=== PATIENT | female | born 1970 | race American Indian/Alaskan Native ===

== ENCOUNTER 2020-11-14 18:10 | Emergency (ER) | payer SELFPAY ==
[2020-11-14 19:47] VITALS: BP 142/82
--- NOTE | 2020-11-14 19:53 | Emergency Department Report ---
ED General Adult HPI - General Stated complaint: INSECT BITE Time Seen by Provider: 11/14/20 19:49 - History of Present Illness Initial comments: 49-year-old female patient presents to the emergency department with complaints of progressively worsening right lower extremity pain/swelling/erythema progressively worsening for 2 weeks. Patient states that the lesion appeared on her anterior right lower leg after attending a barbecue. She was evaluated at another local emergency department, where she was treated with an antibiotic containing Penicillin (cannot recall the name) for 5 days and discharged home. Patient states her symptoms have worsened despite her compliance with prescribed antibiotic therapy. No known history of diabetes. Denies fever, chills, paresthesias, numbness, purulent drainage, abnormal bleeding/bruising. Denies all other complaints at this time. - Related Data Previous Rx's Medication Instructions Recorded Last Taken Type Diclofenac Sodium 50 mg PO TID #20 tablet. 11/14/20 Unknown Rx Sulfamethoxazole/Trimethoprim 1 each PO BID 7 Days tablet 11/14/20 Unknown Rx [Bactrim 400-80 mg Tablet] Allergies Allergy/AdvReac Type Severity Reaction Status Date / Time naproxen [From Naprosyn] Allergy Vomiting Verified 11/14/20 19:54 ED Review of Systems ROS: Stated complaint: INSECT BITE Other details as noted in HPI Other: GENERAL: Negative for fever, chills, weight change, anorexia, fatigue. ENT: Negative for ear pain, difficulty hearing, sore throat, nasal congestion, epistaxis. CARDIOVASCULAR: Negative for chest pain, palpitations, lower extremity swelling. PULMONARY: Negative for cough, dyspnea, wheezing, orthopnea, cyanosis. GASTROINTESTINAL: Negative for abdominal pain, nausea, vomiting, diarrhea, constipation. MUSCULOSKELETAL: Positive for right leg pain. NEUROLOGICAL: Negative for headache, seizure, syncope, paresthesias, weakness. INTEGUMENTARY: Positive for erythema and swelling. HEMATOLOGICAL: Negative for hemoptysis, hematemesis, hematochezia, hematuria. PSYCHIATRIC: Negative for hallucinations, suicidal ideation, homicidal ideation, anxiety, depression. ED Past Medical Hx - Medications Home Medications: Home Medications Medication Instructions Recorded Confirmed Last Taken Type Diclofenac Sodium 50 mg PO TID #20 tablet. 11/14/20 Unknown Rx Sulfamethoxazole/Trimethoprim 1 each PO BID 7 Days tablet 11/14/20 Unknown Rx [Bactrim 400-80 mg Tablet] ED Physical Exam - Other Other exam information: General: Awake and alert. No acute distress. Head: Atraumatic, normocephalic. Eyes: EOMI. Pupils are equal and round. Normal sclera and conjunctiva. ENT: Oral mucosa is moist. Normal pharyngeal exam. Neck: Supple. No lymphadenopathy. Pulmonary: No respiratory distress. Clear to auscultation bilaterally. Cardiac: Regular rate and rhythm. Pulses are palpable and equal bilaterally. No lower extremity cyanosis. Skin: Tenderness to palpation throughout the distal right lower extremity with mild nonpitting edema. There is a macular erythematous lesion noted to the anterior aspect of the distal right lower extremity with overlying warmth. No fluctuance. No purulent drainage. No proximally streaking erythema. No necrosis. No crepitus. Distal neurovascular and motor/sensory function intact. Ambulatory without assistance. Abdomen: Soft, non-tender, non-protuberant. No guarding, rigidity, or rebound. Bowel sounds are normal. No organomegaly or masses noted. Back: Normal alignment. No CVA tenderness. Extremities: Symmetrical. Full range of motion intact. Compartments are soft Neurological: Alert and oriented, appropriately interactive, no focal deficits. Psych: Cooperative. Appropriate mood and affect. Speech is evenly metered. Thoughts are logically construed. ED Course Vital Signs 11/14/20 19:39 Temperature 98.4 F Pulse Rate 82 Respiratory 18 Rate Blood Pressure 142/82 O2 Sat by Pulse 99 Oximetry ED Medical Decision Making - Lab Data Result diagrams: 11/14/20 19:57 11/14/20 19:57 - Medical Decision Making Differential diagnosis including but not limited to: cellulitis, erysipelas, necrotizing soft tissue infection, retained foreign body, deep vein thrombosis, arterial occlusion, peripheral arterial disease, compartment syndrome, pyoderma gangrenosum On evaluation, patient remains stable. Repeat neurovascular exam remains intact. Venous duplex ultrasound of the right lower extremity obtained due to elevated D-dimer; negative for deep vein thrombosis. Labs are otherwise unremarkable. X-ray shows nonspecific soft tissue swelling, no evidence of bony destruction. She is afebrile, hemodynamically stable, without signs/symptoms of systemic toxicity. History and exam findings consistent with uncomplicated nonpurulent cellulitis. Patient will be prescribed Bactrim (she was recently on Penicillin) and appropriate analgesics. Emphasized the importance of following up with primary care provider within the week for reevaluation to assess response to antibiotic therapy. Patient expressed understanding and is agreeable to plan of care. Strict return precautions provided. Repeat exam is unremarkable and benign. History, exam, diagnostic testing, and current condition do not suggest worrisome pathology to warrant further testing, continued ED treatment, admission, or surgical evaluation at this point. Given the low probability of a significant medical illness, it would be more likely to result in harm than benefit to perform further testing at this stage. Discussed findings, presumptive diagnosis, need for follow-up and specific signs/symptoms that should prompt immediate return to the emergency department. Instructions were explained in detail to the patient in addition to giving written discharge information. Patient expressed understanding and was given the opportunity to ask questions, all of which were satisfactorily answered prior to discharge home. Critical care attestation.: If time is entered above; I have spent that time in minutes in the direct care of this critically ill patient, excluding procedure time. ED Disposition Clinical Impression: Cellulitis of right lower limb Disposition: DC-01 TO HOME OR SELFCARE Is pt being admited?: No Does the pt Need Aspirin: No Condition: Stable Instructions: Cellulitis, Adult, [id number] Additional Instructions: Continue taking Tylenol every 4 hours as needed for pain. Take Diclofenac with food as directed for pain. Take Bactrim with food as directed. Increase your dietary intake of probiotic rich foods while taking this medication. Keep right lower leg elevated as often as possible to reduce swelling. Follow-up with Dr. Paulson, primary care provider, this week for reevaluation. Call tomorrow to schedule an appointment. See referral information below. Return to the emergency department immediately for new or worsening symptoms. Prescriptions: Sulfamethoxazole/Trimethoprim [Bactrim 400-80 mg Tablet] 1 each PO BID 7 Days tablet Diclofenac Sodium 50 mg PO TID #20 tablet. Referrals: PORTIA PAULSON MD [Staff Physician] - 3-5 Days Time of Disposition: 22:52
--- NOTE | 2020-11-14 20:22 | XRay Report ---
RIGHT TIBIA-FIBULA, 4 VIEWS INDICATION / CLINICAL INFORMATION: pain/erythema, no trauma. Patient reports area of insect bite distal tibia COMPARISON: None available. FINDINGS: There is some soft tissue edema along the medial aspect of the lower leg. I do not see any significan t osseous abnormality. The visualized tibia and fibula are intact and without abnormality. Incidental note is made of a plantar calcaneal spur. IMPRESSION: Mild to moderate nonspecific soft tissue edema noted along the medial aspect of the lower leg. No associated osseous abnormality. Signer Name: Page Garcia MD Signed: 11/14/2020 8:17 PM Workstation Name: [id number]
[2020-11-14 20:30] LABS: Basophils % (Auto) 0.5 % (0.0-1.8); Eosinophils # (Auto) 0.2 K/mm3 (0.0-0.4); Eosinophils % (Auto) 3.2 % (0.0-4.3); Hematocrit 40.5 % (30.3-42.9); Hemoglobin 13.5 gm/dl (10.1-14.3); Lymphocytes % (Auto) 30.9 % (13.4-35.0); Mean Corpuscular HGB Conc 33 % (30-34); Mean Corpuscular Volume 83 fl (79-97); Monocytes # (Auto) 0.4 K/mm3 (0.0-0.8); Monocytes % (Auto) 6.5 % (0.0-7.3); Platelet Count 279 K/mm3 (140-440); Red Blood Count 4.87 M/mm3 (3.65-5.03); Red Cell Distribution Width 15.8 % (13.2-15.2)
[2020-11-14 20:50] LABS: Alanine Aminotransferase 10 units/L (7-56); Albumin 3.6 g/dL (3.9-5); Blood Urea Nitrogen 11 mg/dL (7-17); Calcium 9.1 mg/dL (8.4-10.2); Hemolysis Index 19
[2020-11-14 21:02] LABS: BUN/Creatinine Ratio 16
--- NOTE | 2020-11-14 22:29 | Vascular Lab Report ---
DUPLEX DOPPLER LOWER EXTREMITY VEINS, RIGHT INDICATION: pain/swelling of right lower leg; (+) D-dimer. TECHNIQUE: Duplex doppler imaging was performed through the veins of the right lower extremity using venous comp ression and other maneuvers. COMPARISON: No relevant prior imaging study available. FINDINGS: Right Common femoral vein: Negative. Right Superficial femoral vein: Negative. Right Popliteal vein: Negative. Right Calf veins: Negative. Additional findings: None.. IMPRESSION: 1. No sonographic evidence for DVT in the right lower extremity. Signer Name: Jaspreet Clark MD Signed: 11/14/2020 10:24 PM Workstation Name: [id number]
== END 2020-11-14 23:00 | disposition home or self-care (01) ==
LOC: ED 18:10
DX: L03.115 Cellulitis of right lower limb (principal); Z79.899 Other long term (current) drug therapy; Z88.8 Allergy status to other drugs, medicaments and biological substances
CPT/HCPCS: 36415; 80053; 85025; 85379